=== PATIENT | male | born 1990 | race Caucasian/White ===

== ENCOUNTER 2018-09-07 05:33 | Emergency (ER) | payer OTHER ==
[2018-09-07] MEDS ORDERED: IBUPROFEN 400 MG TAB ONE (06:02)
--- NOTE | 2018-09-07 06:38 | ER ---
Nurse's Notes [facility] Name: Qasim Cooper Age: 28 yrs Sex: Male : 1990 Arrival Date: 09/07/2018 Time: 05:38 Bed 8 Private MD: Diagnosis: Sprain of ankle Presentation: 09/07 05:45 Presenting complaint: Patient states: Rolled ankle yesterday at [employer]. More painful tl2 and swollen this morning. Pt able to bear weight. Transition of care: patient was not received from another setting of care. Onset of symptoms was September 06, 2018 at 15:00. Risk Assessment: Do you want to hurt yourself or someone else? Patient reports no desire to harm self or others. Initial Sepsis Screen: Does the patient meet any 2 criteria? No. Patient's initial sepsis screen is negative. Does the patient have a suspected source of infection? No. Patient's initial sepsis screen is negative. Care prior to arrival: None. 05:45 Method Of Arrival: Ambulatory tl2 05:45 Acuity: BERTHA 4 tl2 Triage Assessment: 05:49 General: Appears in no apparent distress. comfortable, Behavior is calm, cooperative, tl2 appropriate for age. Pain: Complains of pain in left lateral ankle Pain currently is 4 out of 10 on a pain scale. Neuro: Level of Consciousness is awake, alert, obeys commands, Oriented to person, place, time, situation. Respiratory: Airway is patent Respiratory effort is even, unlabored, Respiratory pattern is regular, symmetrical. GI: No signs and/or symptoms were reported involving the gastrointestinal system. : No signs and/or symptoms were reported regarding the genitourinary system. Musculoskeletal: Circulation, motion, and sensation intact. Range of motion: limited in left ankle Swelling present in left lateral ankle. Historical: - Allergies: 05:49 Sulfa (Sulfonamide Antibiotics); tl2 - Home Meds: 05:49 None [Active]; tl2 - PMHx: 05:49 None; tl2 - PSHx: 05:49 wrist surgery; tl2 - Immunization history:: Adult Immunizations up to date. - Social history:: Smoking status: Patient/guardian denies using tobacco. - Ebola Screening: : No symptoms or risks identified at this time. - Family history:: not pertinent. - Hospitalizations: : No recent hospitalization is reported. Screenin:51 Abuse screen: Denies threats or abuse. Nutritional screening: No deficits noted. tl2 Tuberculosis screening: No symptoms or risk factors identified. Fall Risk None identified. Assessment: 05:49 General: see triage assessment. tl2 06:51 Reassessment: Patient appears in no apparent distress at this time. Patient and/or tl2 family updated on plan of care and expected duration. Pain level reassessed. Patient is alert, oriented x 3, equal unlabored respirations, skin warm/dry/pink. pt verbalized understanding of discharge instructions, need for follow up. Vital Signs: 05:49 BP 131 / 93; Pulse 82; Resp 18; Temp 98.4(O); Pulse Ox 96% on R/A; Weight 99.79 kg; tl2 Height 5 ft. 9 in. (175.26 cm); Pain 4/10; 06:51 BP 118 / 87; Pulse 84; Resp 18; Pulse Ox 94% on R/A; tl2 05:49 Body Mass Index 32.49 (99.79 kg, 175.26 cm) tl2 ED Course: 05:38 Patient arrived in ED. ds1 05:42 Clifford Jerry MD is Attending Physician. rn 05:46 Triage completed. tl2 05:49 Arm band placed on right wrist. tl2 05:51 Patient has correct armband on for positive identification. Bed in low position. Call tl2 light in reach. Side rails up X 1. 05:52 Ana Cristina Bojorquez, RN is Primary Nurse. ea 06:02 X-ray completed. Portable x-ray completed in exam room. Patient tolerated procedure sg4 well. 06:40 No provider procedures requiring assistance completed. Ankle aircast on L ankle. tl2 06:53 Patient did not have IV access during this emergency room visit. tl2 Administered Medications: 05:53 Drug: Motrin 800 mg Route: PO; ea 06:53 Follow up: Response: No adverse reaction tl2 Outcome: 06:37 Discharge ordered by . rn 06:53 Discharged to home via wheelchair, with family. tl2 06:53 Condition: stable 06:53 Discharge instructions given to patient, family, Instructed on discharge instructions, follow up and referral plans. Demonstrated understanding of instructions, follow-up care. 06:54 Patient left the ED. tl2 Signatures: Elisa Castanon ds1 Clifford Jerry MD MD rn Donta, Magalis, RN RN tl2 Ana Cristina Bojorquez RN RN rosibel Gross, Maranda sg4
--- NOTE | 2018-09-07 06:38 | EDPHYS ---
Physician Documentation [facility] Name: Qasim Cooper Age: 28 yrs Sex: Male : 1990 Arrival Date: 09/07/2018 Time: 05:38 Bed 8 Private MD: ED Physician Clifford Jerry HPI: 09/07 05:55 This 28 yrs old Male presents to ER via Ambulatory with complaints of Ankle rn Injury. 05:55 The patient presents with an injury, pain. The complaints affect the left ankle. rn Context: The problem [place] park, resulted from a mis-step by the patient, The mechanism of injury involved inversion of the affected ankle. the patient is able to ambulate. Modifying factors: The symptoms are alleviated by elevation of extremity, the symptoms are aggravated by weight bearing. Severity of symptoms: At their worst the symptoms were mild, in the emergency department the symptoms are unchanged. The patient has not experienced similar symptoms in the past. The patient has not recently seen a physician. Reports left ankle injury, at [employer] park, inversion of left ankle, able to walk, isolated pain to outer left ankle. Mild swelling. . Historical: - Allergies: 05:49 Sulfa (Sulfonamide Antibiotics); tl2 - Home Meds: 05:49 None [Active]; tl2 - PMHx: 05:49 None; tl2 - PSHx: 05:49 wrist surgery; tl2 - Immunization history:: Adult Immunizations up to date. - Social history:: Smoking status: Patient/guardian denies using tobacco. - Ebola Screening: : No symptoms or risks identified at this time. - Family history:: not pertinent. - Hospitalizations: : No recent hospitalization is reported. ROS: 05:55 Constitutional: Negative for fever, chills, and weight loss, MS/Extremity: + left ankle rn injury and pain Neuro: Negative for numbness/weakness/tingling Exam: 05:55 Constitutional: This is a well developed, well nourished patient who is awake, alert, rn and in no acute distress. Walked to room without assistance MS/ Extremity: Pulses equal, no cyanosis. Neurovascular intact. + mild tenderness left lateral malleolus with mild swelling, no deformity, FROM against gravity but mild pain again resistance. Vital Signs: 05:49 BP 131 / 93; Pulse 82; Resp 18; Temp 98.4(O); Pulse Ox 96% on R/A; Weight 99.79 kg; tl2 Height 5 ft. 9 in. (175.26 cm); Pain 4/10; 06:51 BP 118 / 87; Pulse 84; Resp 18; Pulse Ox 94% on R/A; tl2 05:49 Body Mass Index 32.49 (99.79 kg, 175.26 cm) tl2 MDM: 05:42 Patient medically screened. rn 06:37 Differential diagnosis: fracture, sprain. Data reviewed: vital signs, nurses notes, rn radiologic studies, plain films, and as a result, I will discharge patient. Counseling: I had a detailed discussion with the patient and/or guardian regarding: the historical points, exam findings, and any diagnostic results supporting the discharge/admit diagnosis, radiology results, the need for outpatient follow up, to return to the emergency department if symptoms worsen or persist or if there are any questions or concerns that arise at home. Special discussion: I discussed with the patient/guardian in detail that at this point there is no indication for admission to the hospital. It is understood, however, that if the symptoms persist or worsen the patient needs to return immediately for re-evaluation. 09/07 05:47 Order name: XRAY Ankle LEFT 3 view rn 09/07 06:26 Order name: Splint - Ankle: Aircast; Complete Time: 06:34 rn Administered Medications: 05:53 Drug: Motrin 800 mg Route: PO; ea 06:53 Follow up: Response: No adverse reaction tl2 Disposition: 09/07/18 06:37 Discharged to Home. Impression: Sprain of ankle. - Condition is Stable. - Discharge Instructions: Ankle Sprain. - Medication Reconciliation Form, Thank You Letter, Antibiotic Education, Prescription Opioid Use, Work release form form. - Follow up: Private Physician; When: As needed; Reason: Recheck today's complaints, Re-evaluation by your physician. - Problem is new. - Symptoms have improved. Signatures: Dispatcher [employer] EDMS Clifford Jerry MD MD rn Knox, Taylor, RN RN tl2 Ana Cristina Bojorquez RN RN ea Corrections: (The following items were deleted from the chart) 06:54 06:37 09/07/2018 06:37 Discharged to Home. Impression: Sprain of ankle. Condition is tl2 Stable. Forms are Medication Reconciliation Form, Thank You Letter, Antibiotic Education, Prescription Opioid Use. Follow up: Private Physician; When: As needed; Reason: Recheck today's complaints, Re-evaluation by your physician. Problem is new. Symptoms have improved. rn
--- NOTE | 2018-09-07 09:12 | RAD REPORT ---
EXAM DESCRIPTION: RAD - Ankle Left 3 View -09/07/2018 6:03 am CLINICAL HISTORY: Left ankle pain status post injury FINDINGS: No fracture or dislocation is seen. Soft tissue swelling present
== END 2018-09-07 06:54 | disposition home or self-care (01) ==
LOC: ER 05:33
DX: S93.402A Sprain of unspecified ligament of left ankle, initial encounter (principal); X50.1XXA Overexertion from prolonged static or awkward postures, initial encounter; Y93.44 Activity, trampolining; Y92.39 Other specified sports and athletic area as the place of occurrence of the external cause; Z88.2 Allergy status to sulfonamides
CPT/HCPCS: 99283

== ENCOUNTER 2020-03-30 22:16 | Emergency (ER) | payer BC, OTHER ==
--- OUTSIDE RECORDS SUMMARY | 2020-03-30 22:18 | XMS REPORT | Continuity of Care Document ---
:1990 Author Organization [facility] t Address [address] [place] [address] Care Team Providers Name Role Phone Pob1, Care Clinic Attending Clinician Unavailable Andres RN, S Attending Clinician Unavailable Doctor Unassigned, Name Attending Clinician Unavailable Problems This patient has no known problems. Allergies, Adverse Reactions, Alerts This patient has no known allergies or adverse reactions. Medications This patient has no known medications. Procedures This patient has no known procedures. Encounters Start End Encounter Admission Attending Care Care Encounter Source Date/Time Date/Time Type Type Clinicians Facility Department ID 2019-10-28 2019-10-28 Urgent Pob1, Acute [facility] [id number] 08:26:56 08:55:29 [facility] [id number] [place] [id number] [facility] [phone] [address] 2019-10-28 2019-10-28 Telephone CHASE Campos [id number] 00:00:00 00:00:00 Trinicinthia SAEEDY [id number] [facility] [id number] [id number] 2019-10-27 2019-10-27 Patient Doctor [facility] [id number] 00:00:00 00:00:00 Secure Msg Unassigned, [place] [id number] [place] [id number] [facility] [phone] nal [address] 2019-10-26 2019-10-26 Telephone Pob1, Acute [facility] [id number] 00:00:00 00:00:00 [facility] [id number] [place] [id number] [facility] [phone] [place] [address] [address] Results This patient has no known results.
--- NOTE | 2020-03-31 00:13 | EDPHYS ---
Physician Documentation [facility] Name: Qasim Cooper Age: 29 yrs Sex: Male : 1990 Arrival Date: 03/30/2020 Time: 22:19 Bed 4 Private MD: ED Physician Larry Velasquez HPI: 03/31 02:10 This 29 yrs old Male presents to ER via Wheelchair with complaints of Low tw4 Back Pain. 02:10 The patient presents with pain that is acute. The symptoms are located in the low back. tw4 The pain does not radiate. The problem was sustained when bending over. Onset: The symptoms/episode began/occurred today. Modifying factors: The patient symptoms are alleviated by nothing, the patient symptoms are aggravated by nothing. The patient has not experienced similar symptoms in the past. Historical: - Allergies: 03/30 22:35 Sulfa (Sulfonamide Antibiotics); bb 22:35 Codeine; bb - Home Meds: 22:35 None [Active]; bb - PMHx: 22:35 None; bb - PSHx: 22:35 left wrist; bb - Immunization history:: Adult Immunizations up to date. - Social history:: Smoking status: Patient denies any tobacco usage or history of. Patient uses alcohol, occasionally. Patient/guardian denies using street drugs. ROS: 03/31 02:10 Constitutional: Negative for fever, chills, and weight loss, Cardiovascular: Negative tw4 for chest pain, palpitations, and edema, Respiratory: Negative for shortness of breath, cough, wheezing, and pleuritic chest pain, Abdomen/GI: Negative for abdominal pain, nausea, vomiting, diarrhea, and constipation, MS/Extremity: Negative for injury and deformity, Skin: Negative for injury, rash, and discoloration, Neuro: Negative for headache, weakness, numbness, tingling, and seizure. Back: Positive for decreased range of motion, pain at rest, pain with movement. Exam: 02:10 Constitutional: This is a well developed, well nourished patient who is awake, alert, tw4 and in no acute distress. Head/Face: Normocephalic, atraumatic. Chest/axilla: Normal chest wall appearance and motion. Nontender with no deformity. No lesions are appreciated. Cardiovascular: Regular rate and rhythm with a normal S1 and S2. No gallops, murmurs, or rubs. Normal PMI, no JVD. No pulse deficits. Respiratory: Lungs have equal breath sounds bilaterally, clear to auscultation and percussion. No rales, rhonchi or wheezes noted. No increased work of breathing, no retractions or nasal flaring. Abdomen/GI: Soft, non-tender, with normal bowel sounds. No distension or tympany. No guarding or rebound. No evidence of tenderness throughout. MS/ Extremity: Pulses equal, no cyanosis. Neurovascular intact. Full, normal range of motion. Neuro: Awake and alert, GCS 15, oriented to person, place, time, and situation. Cranial nerves II-XII grossly intact. Motor strength 5/5 in all extremities. Sensory grossly intact. Cerebellar exam normal. Normal gait. 02:10 Back: pain, is absent, ROM is painful, normal spinal alignment noted. Vital Signs: 03/30 22:32 BP 143 / 113; Pulse 104; Resp 18 S; Temp 98.2(O); Pulse Ox 96% on R/A; Weight 90.72 kg bb (R); Height 5 ft. 9 in. (175.26 cm) (R); Pain 12/22; 03/31 00:40 BP 123 / 90; Pulse 95; Resp 16; Pulse Ox 100% ; rr5 03/30 22:32 Body Mass Index 29.53 (90.72 kg, 175.26 cm) bb MDM: 03/30 23:36 Patient medically screened. tw4 03/31 02:10 Differential diagnosis: arthritis, strain, UTI. Data reviewed: vital signs, nurses tw4 notes. Data interpreted: Pulse oximetry: Interpretation: normal. Counseling: I had a detailed discussion with the patient and/or guardian regarding: the historical points, exam findings, and any diagnostic results supporting the discharge/admit diagnosis. Medication response: Toradol relieved patient's pain. The symptoms have resolved. Response to treatment: the patient's symptoms have markedly improved after treatment, and as a result, I will discharge patient. Special discussion: I discussed with the patient/guardian in detail that at this point there is no indication for admission to the hospital. It is understood, however, that if the symptoms persist or worsen the patient needs to return immediately for re-evaluation. Administered Medications: 00:10 Drug: Flexeril 10 mg Route: PO; rr5 00:38 Follow up: Response: No adverse reaction; Pain is decreased rr5 00:11 Drug: TORadol 60 mg Route: IM; Site: left gluteus; rr5 00:38 Follow up: Response: No adverse reaction; Pain is decreased rr5 00:15 Not Given (Other Intervention Used; allergic): Tylenol #3 (300 mg-30 mg) 1 tablet PO rr5 once; RASS on ADMIN: Combtv4, Very Agttd3, Agttd2, Rstlss1, AlertClm0, Drwsy-1, Lt Sdtn-2, Mod Sdtn-3, Dp Sdtn-4, UnArsble-5 Disposition: 03/31/20 00:13 Discharged to Home. Impression: Sciatica, left side. - Condition is Stable. - Discharge Instructions: Sciatica, Radicular Pain. - Prescriptions for Tramadol 50 mg Oral Tablet - take 1 tablet by ORAL route every 8 hours as needed; 12 tablet. Cyclobenzaprine 5 mg Oral Tablet - take 1 tablet by ORAL route 3 times per day As needed; 15 tablet. - Medication Reconciliation Form, Thank You Letter, Antibiotic Education, Prescription Opioid Use, Work release form form. - Follow up: Private Physician; When: Upon discharge from the Emergency Department; Reason: Recheck today's complaints, Continuance of care, Re-evaluation by your physician. - Problem is new. - Symptoms have improved. Signatures: Imelda Bustos RN RN Larry Adame MD MD tw4 Thuan Izaguirre RN RN rr5 Corrections: (The following items were deleted from the chart) 00:39 00:13 03/31/2020 00:13 Discharged to Home. Impression: Sciatica, left side. Condition rr5 is Stable. Forms are Medication Reconciliation Form, Thank You Letter, Antibiotic Education, Prescription Opioid Use. Follow up: Private Physician; When: Upon discharge from the Emergency Department; Reason: Recheck today's complaints, Continuance of care, Re-evaluation by your physician. Problem is new. Symptoms have improved. tw4
--- NOTE | 2020-03-31 00:13 | ER ---
Nurse's Notes [facility] Name: Qasim Cooper Age: 29 yrs Sex: Male : 1990 Arrival Date: 03/30/2020 Time: 22:19 Bed 4 Private MD: Diagnosis: Sciatica, left side Presentation: 03/30 22:32 Chief complaint: Patient states: he was taking a nap with his son on the couch today bb and when he woke up and tried to get up he started having severe lower back pain radiating down his left leg. Coronavirus screen: At this time, the client does not indicate any symptoms associated with coronavirus-19. Ebola Screen: No symptoms or risks identified at this time. Initial Sepsis Screen: Does the patient meet any 2 criteria? No. Patient's initial sepsis screen is negative. Does the patient have a suspected source of infection? No. Patient's initial sepsis screen is negative. Risk Assessment: Do you want to hurt yourself or someone else? Patient reports no desire to harm self or others. Onset of symptoms was March 30, 2020. 22:32 Method Of Arrival: Wheelchair bb 22:32 Acuity: BERTHA 3 bb Historical: - Allergies: 22:35 Sulfa (Sulfonamide Antibiotics); bb 22:35 Codeine; bb - Home Meds: 22:35 None [Active]; bb - PMHx: 22:35 None; bb - PSHx: 22:35 left wrist; bb - Immunization history:: Adult Immunizations up to date. - Social history:: Smoking status: Patient denies any tobacco usage or history of. Patient uses alcohol, occasionally. Patient/guardian denies using street drugs. Screenin:51 Abuse screen: Denies threats or abuse. Denies injuries from another. Nutritional rr5 screening: No deficits noted. Tuberculosis screening: No symptoms or risk factors identified. Fall Risk Gait- Impaired (20 pts.). Total Pina Fall Scale indicates No Risk (0-24 pts). Assessment: 23:50 General: Appears in no apparent distress. uncomfortable, Behavior is calm, cooperative, rr5 appropriate for age. Pain: Complains of pain in lumbar area Pain radiates to left leg Pain currently is 2 out of 10 on a pain scale. at worst was 10 out of 10 on a pain scale. Quality of pain is described as aching, Pain began suddenly, Is intermittent. Neuro: Level of Consciousness is awake, alert, obeys commands, Oriented to person, place, time, situation. Cardiovascular: Capillary refill < 3 seconds Patient's skin is warm and dry. Respiratory: Airway is patent Respiratory effort is even, unlabored, Respiratory pattern is regular, symmetrical. GI: No signs and/or symptoms were reported involving the gastrointestinal system. : No signs and/or symptoms were reported regarding the genitourinary system. EENT: No signs and/or symptoms were reported regarding the EENT system. Derm: Skin is intact, is healthy with good turgor, Skin temperature is warm. Musculoskeletal: Capillary refill < 3 seconds, Reports pain in lumbar area Pain is 2 out of 10 on a pain scale. 03/31 00:40 Reassessment: Patient appears in no apparent distress at this time. Patient is alert, rr5 oriented x 3, equal unlabored respirations, skin warm/dry/pink. discharge instruction given and explained without complaints made Patient states feeling better. Patient states symptoms have improved. Vital Signs: 03/30 22:32 BP 143 / 113; Pulse 104; Resp 18 S; Temp 98.2(O); Pulse Ox 96% on R/A; Weight 90.72 kg bb (R); Height 5 ft. 9 in. (175.26 cm) (R); Pain 6/10; 03/31 00:40 BP 123 / 90; Pulse 95; Resp 16; Pulse Ox 100% ; rr5 03/30 22:32 Body Mass Index 29.53 (90.72 kg, 175.26 cm) bb ED Course: 03/30 22:19 Patient arrived in ED. cl3 22:34 Triage completed. bb 22:35 Arm band placed on Patient placed in waiting room, Patient notified of wait time. bb 23:34 Thuan Izaguirre RN is Primary Nurse. rr5 23:36 Larry Velasquez MD is Attending Physician. tw4 23:51 Patient has correct armband on for positive identification. Bed in low position. Call rr5 light in reach. 03/31 00:40 No provider procedures requiring assistance completed. Patient did not have IV access rr5 during this emergency room visit. Administered Medications: 00:10 Drug: Flexeril 10 mg Route: PO; rr5 00:38 Follow up: Response: No adverse reaction; Pain is decreased rr5 00:11 Drug: TORadol 60 mg Route: IM; Site: left gluteus; rr5 00:38 Follow up: Response: No adverse reaction; Pain is decreased rr5 00:15 Not Given (Other Intervention Used; allergic): Tylenol #3 (300 mg-30 mg) 1 tablet PO rr5 once; RASS on ADMIN: Combtv4, Very Agttd3, Agttd2, Rstlss1, AlertClm0, Drwsy-1, Lt Sdtn-2, Mod Sdtn-3, Dp Sdtn-4, UnArsble-5 Outcome: 00:13 Discharge ordered by . tw4 00:38 Discharged to home via wheelchair. rr5 00:38 Condition: stable 00:38 Discharge instructions given to patient, Instructed on discharge instructions, follow up and referral plans. medication usage, Demonstrated understanding of instructions, follow-up care, medications, Prescriptions given X 2. 00:39 Patient left the ED. rr5 Signatures: Imelda Bustos, RN RN Larry Adame MD MD tw4 Thuan Izaguirre RN RN rr5 Rajendra Campos cl3
[2020-03-31] MEDS ORDERED: CYCLOBENZAPRINE 10 MG TAB ONE (00:17)
[2020-03-31] MEDS ORDERED: CODEINE 30MG/APAP 300MG TAB ONE (00:17)
[2020-03-31] MEDS ORDERED: KETOROLAC 30 MG/ML INJ ONE (00:17)
[2020-03-31 00:59] VITALS: BP 143/113; TEMP 98.2; O2SAT 96
== END 2020-03-31 00:39 | disposition home or self-care (01) ==
LOC: ER 22:16
DX: M54.32 Sciatica, left side (principal); Z88.2 Allergy status to sulfonamides; Z88.5 Allergy status to narcotic agent
CPT/HCPCS: 96372; 99283

== ENCOUNTER 2020-11-16 16:07 | Emergency (ER) | payer BC ==
--- OUTSIDE RECORDS SUMMARY | 2020-11-16 16:10 | XMS REPORT | Continuity of Care Document ---
:[address] [facility] t Address [address] [place] [address] Care Team Providers Name Role Phone Dusty Greenfield DO Attending Clinician Pob1, Care Clinic Attending Clinician Unavailable Andres [...] Date/Time Type Type Clinicians Facility Department ID 2020-10-04 2020-10-04 Patient DAIANA Greenfield [id number] 00:00:00 00:00:00 Outreach [facility] [id number] [facility] [id number] PAVCHRIST[place] [phone] [id number] 2019-10-28 2019-10-28 Urgent Pob1, Acute [facility] [id number] 08:26:56 08:55:29 [facility] [id number] [place] [id number] [place] [phone] nal [address] 2019-10-28 2019-10-28 Telephone CHASE Campos [id number] 00:00:00 00:00:00 [facility]ini VILLA [id number] [facility] [id number] 2019-10-27 2019-10-27 Patient Doctor [facility] [id number] 00:00:00 00:00:00 Secure Msg Unassigned, [place] [id number] [place] [id number] [facility] [phone] nal 0[address] Building 2019-10-26 2019-10-26 Telephone Pob1, Acute [facility] [id number] 00:00:00 00:00:00 [facility] [id number] [place] [id number] [facility] [phone] nal [facility] [address] One Results This patient has no known results.
--- NOTE | 2020-11-16 20:45 | RAD REPORT ---
EXAM DESCRIPTION: CT - Spine Lumbar Wo Con - 11/16/2020 8:17 pm CLINICAL HISTORY: LOWER BACK PAIN COMPARISON: None. TECHNIQUE: Thin section axial imaging of the lumbar spine was performed. Sagittal and coronal recon struction images were generated and reviewed. All CT scans are performed using dose optimization technique as appropriate and may include automated exposure control or mA/KV adjustment according to patient size. FINDINGS: Lumbar bodies are normal in height. Schmorl's node or focal concavity is seen in the anter ior aspect L5 superior endplate. Peripheral wall body height is preserved. Minimal Schmorl's nodes se en in the inferior endplates of T12 and L1. No fracture or acute vertebral body finding. No paraspina l mass identifiable. L4-5 and L5-S1 disc space narrowing present. Minimal L4-5 disc bulge. No canal or foramen stenosis. L5-S1 disc bulge is present contacting but not displacing the S1 nerve roots. No pars defects are present. Facet joint degenerative changes are mild. No abnormal ligamentous thick ening. Central canal detail is inherently limited. IMPRESSION: No disc herniation is seen. No canal stenosis or foraminal encroachment. Disc space narrowing present L4-5 and L5-S1 with degenerative change noted to the superior endplate L 5. Bulging disc material at L5-S1 contacts but does not displace the S1 nerve roots.
--- NOTE | 2020-11-16 21:11 | EDPHYS ---
Physician Documentation [facility] Name: Qasim Cooper Age: 30 yrs Sex: Male : 1990 Arrival Date: 11/16/2020 Time: 16:11 Bed 2 Private MD: ED Physician Trisha Lainez HPI: 11/16 20:10 This 30 yrs old Male presents to ER via Ambulatory with complaints of Back cp Pain. 20:10 The patient presents with pain that is chronic, with no known mechanism of injury. The cp symptoms are located in the low back. 20:10 Onset: The symptoms/episode began/occurred for years, became worse 2 days ago. cp intermittent to right leg. 20:10 Associated signs and symptoms: Pertinent negatives: abdominal pain, constipation, cp fever, incontinence, numbness, tingling, urinary retention, weakness. The problem was sustained from unknown cause. Modifying factors: the patient symptoms are aggravated by bending, movement, standing. Severity of symptoms: in the emergency department the symptoms are unchanged, despite home interventions. 20:10 Patient reports intermittent low back pain for years. Increased pain 2 days ago. Denies cp any specific cause and reports he has seen a chiropractor in the past that helped with low back pain. Historical: - Allergies: 16:57 Codeine; ca1 16:57 Sulfa (Sulfonamide Antibiotics); ca1 - Home Meds: 16:57 None [Active]; ca1 - PMHx: 16:57 None; ca1 - PSHx: 16:57 left wrist; ca1 - Immunization history:: Client reports having NOT received the Covid vaccine. Flu vaccine is up to date. - Social history:: Smoking status: Patient denies any tobacco usage or history of. ROS: 20:15 Constitutional: Negative for body aches, chills, fever, poor PO intake. cp 20:15 Eyes: Negative for injury, pain, redness, and discharge. cp 20:15 Neck: Negative for pain with movement, pain at rest, stiffness. 20:15 Cardiovascular: Negative for chest pain, palpitations. 20:15 Respiratory: Negative for cough, shortness of breath, wheezing. 20:15 Abdomen/GI: Negative for abdominal pain, nausea, vomiting, and diarrhea, bowel incontinence. 20:15 Back: Positive for pain at rest, pain with movement, of the low back area. 20:15 : Negative for urinary symptoms, difficulty urinating, bladder incontinence, testicular pain 20:15 Neuro: Negative for gait disturbance, numbness, tingling, weakness. 20:15 All other systems are negative. Exam: 20:20 Constitutional: The patient appears in no acute distress, alert, awake, non-toxic, well cp developed, well nourished. 20:20 Head/Face: Normocephalic, atraumatic. cp 20:20 Chest/axilla: Inspection: normal, Palpation: is normal, no crepitus, no tenderness. 20:20 Cardiovascular: Rate: normal. 20:20 Respiratory: the patient does not display signs of respiratory distress, Respirations: normal, no use of accessory muscles. 20:20 Abdomen/GI: Exam negative for discomfort, distension, guarding, Inspection: abdomen appears normal. 20:20 Back: pain, that is mild, of the low back area, ROM is painful, with all movement, Straight leg raises: of both lower extremities does not illicit pain. 20:20 Neuro: Motor: moves all fours, strength is 5/5 in the right leg and left leg, cp Sensation: is normal, Deep tendon reflexes are 2+ (normal) in the right patellar, right Achilles, left patellar and left Achilles. Vital Signs: 16:53 BP 127 / 85; Pulse 76; Resp 16 S; Temp 98.1(TE); Pulse Ox 99% on R/A; Weight 90.72 kg ca1 (R); Height 5 ft. 9 in. (175.26 cm) (R); Pain 5/10; 18:44 BP 119 / 90; Pulse 63; Resp 16 S; Pulse Ox 98% on R/A; ca1 16:53 Body Mass Index 29.53 (90.72 kg, 175.26 cm) ca1 MDM: 20:07 Patient medically screened. cp 20:20 Differential diagnosis: Pyelonephritis ruptured disc, Ureterolithiasis vertebral cp fracture, sciatica, cauda equina, spinal stenosis, bulging disc. 21:10 Data reviewed: vital signs, nurses notes, radiologic studies, CT scan. cp 21:10 Counseling: I had a detailed discussion with the patient and/or guardian regarding: the cp historical points, exam findings, and any diagnostic results supporting the discharge/admit diagnosis, radiology results, the need for outpatient follow up, a chiropractor, a family practitioner, to return to the emergency department if symptoms worsen or persist or if there are any questions or concerns that arise at home. 11/16 20:08 Order name: CT Lumbar Spine Wo Jeff; Complete Time: 20:51 cp 11/16 20:51 Interpretation: Report reviewed. cp Administered Medications: No medications were administered Disposition: 11/17 06:16 Co-signature as Attending Physician, Trisha Lainez MD. ma2 Disposition: 11/16/20 21:10 Discharged to Home. Impression: Low back pain. - Condition is Stable. - Discharge Instructions: Form - Return To Work, Back Pain, Adult, Heat Therapy, Back Exercises. - Prescriptions for Lidoderm 5 % Topical adhesive patch,medicated - apply 1 patch by TRANSDERMAL route once daily; 1 box. Cyclobenzaprine 10 mg Oral Tablet - take 1 tablet by ORAL route every 8 hours As needed; 20 tablet. Medrol (Dyu) 4 mg Oral Tablets, Dose Pack - take 1 tablet by ORAL route as directed - follow package instructions; 1 packet. - Work release form, Medication Reconciliation Form, Thank You Letter, Antibiotic Education, Prescription Opioid Use form. - Follow up: Private Physician; When: 1 - 2 days; Reason: Recheck today's complaints. - Problem is chronic. - Symptoms have improved. Signatures: Dispatcher [employer] EDMS Aung Dias PA PA cp Alzahri, Mohammad, MD MD ma2 Thuan Izaguirre RN RN rr5 Laisha Machuca RN RN ca1 Corrections: (The following items were deleted from the chart) 11/16 21:20 21:10 11/16/2020 21:10 Discharged to Home. Impression: Low back pain. Condition is rr5 Stable. Forms are Medication Reconciliation Form, Thank You Letter, Antibiotic Education, Prescription Opioid Use. Follow up: Private Physician; When: 1 - 2 days; Reason: Recheck today's complaints. Problem is chronic. Symptoms have improved. cp
--- NOTE | 2020-11-16 21:11 | ER ---
Nurse's Notes [facility] Name: Qasim Cooper Age: 30 yrs Sex: Male : 1990 Arrival Date: 11/16/2020 Time: 16:11 Bed 2 Private MD: Diagnosis: Low back pain Presentation: 11/16 16:53 Chief complaint: Patient states: Lower back pain x years, but been worse 2 days [employer]. ca1 Been seeing a chiropractor, will be okay for a while then it gets back. Today, it's been hard to walk, to stand up, to bend. Coronavirus screen: Client denies travel out of the [place] in the last 14 days. At this time, the client does not indicate any symptoms associated with coronavirus-19. Ebola Screen: Patient negative for fever greater than or equal to 101.5 degrees Fahrenheit, and additional compatible Ebola Virus Disease symptoms Patient denies exposure to infectious person. Patient denies travel to an Ebola-affected area in the 21 days before illness onset. No symptoms or risks identified at this time. Initial Sepsis Screen: Does the patient meet any 2 criteria? No. Patient's initial sepsis screen is negative. Does the patient have a suspected source of infection? No. Patient's initial sepsis screen is negative. Risk Assessment: Do you want to hurt yourself or someone else? Patient reports no desire to harm self or others. Onset of symptoms was November 16, 2020. 16:53 Method Of Arrival: Ambulatory ca1 16:53 Acuity: BERTHA 4 ca1 Historical: - Allergies: 16:57 Codeine; ca1 16:57 Sulfa (Sulfonamide Antibiotics); ca1 - Home Meds: 16:57 None [Active]; ca1 - PMHx: 16:57 None; ca1 - PSHx: 16:57 left wrist; ca1 - Immunization history:: Client reports having NOT received the Covid vaccine. Flu vaccine is up to date. - Social history:: Smoking status: Patient denies any tobacco usage or history of. Screenin:00 Abuse screen: Denies threats or abuse. Denies injuries from another. Nutritional rr5 screening: No deficits noted. Tuberculosis screening: No symptoms or risk factors identified. Fall Risk None identified. Total Pina Fall Scale indicates No Risk (0-24 pts). Assessment: 20:00 General: Appears in no apparent distress. comfortable, Behavior is calm, cooperative, rr5 appropriate for age. Pain: Complains of pain in back. Neuro: Level of Consciousness is awake, alert, obeys commands, Oriented to person, place, time. 20:00 Cardiovascular: Capillary refill < 3 seconds Patient's skin is warm and dry. rr5 Respiratory: Airway is patent Respiratory effort is even, unlabored, Respiratory pattern is regular, symmetrical. GI: No signs and/or symptoms were reported involving the gastrointestinal system. : No signs and/or symptoms were reported regarding the genitourinary system. EENT: No signs and/or symptoms were reported regarding the EENT system. Derm: Skin is intact, is healthy with good turgor, Skin temperature is warm. Musculoskeletal: Capillary refill < 3 seconds, Reports pain in back. 21:19 Reassessment: Patient appears in no apparent distress at this time. Patient is alert, rr5 oriented x 3, equal unlabored respirations, skin warm/dry/pink. discharge instruction given and explained without complaints made. Vital Signs: 16:53 BP 127 / 85; Pulse 76; Resp 16 S; Temp 98.1(TE); Pulse Ox 99% on R/A; Weight 90.72 kg ca1 (R); Height 5 ft. 9 in. (175.26 cm) (R); Pain 5/10; 18:44 BP 119 / 90; Pulse 63; Resp 16 S; Pulse Ox 98% on R/A; ca1 16:53 Body Mass Index 29.53 (90.72 kg, 175.26 cm) ca1 ED Course: 16:11 Patient arrived in ED. am2 16:56 Triage completed. ca1 16:57 Arm band placed on right wrist. ca1 19:48 Aung Dias PA is PHCP. cp 19:48 Trisha Lainez MD is Attending Physician. cp 19:50 Thuan Izaguirre, POPPY is Primary Nurse. rr5 20:00 Patient has correct armband on for positive identification. Bed in low position. Call rr5 light in reach. 20:00 No provider procedures requiring assistance completed. Patient did not have IV access rr5 during this emergency room visit. 20:17 CT Lumbar Spine Wo Con In Process Unspecified. EDMS Administered Medications: No medications were administered Outcome: 21:10 Discharge ordered by . cp 21:20 Discharged to home ambulatory. rr5 21:20 Condition: stable 21:20 Discharge instructions given to patient, Instructed on discharge instructions, follow up and referral plans. medication usage, Demonstrated understanding of instructions, follow-up care, medications, Prescriptions given X 3. 21:20 Patient left the ED. rr5 Signatures: Dispatcher [employer] EDMS Aung Dias PA PA cp Moreno, Amanda am2 Thuan Izaguirre RN RN rr5 Laisha Machuca RN RN ca1
[2020-11-16 21:36] VITALS: TEMP 98.1
[2020-11-16 21:38] VITALS: BP 119/90; O2SAT 98
== END 2020-11-16 21:20 | disposition home or self-care (01) ==
LOC: ER 16:07
DX: M54.5 Low back pain (principal); Z88.2 Allergy status to sulfonamides; Z88.5 Allergy status to narcotic agent
CPT/HCPCS: 72131; 99283